=== PATIENT | female | born 1990 | race Two or more races ===

== ENCOUNTER → 2017-01-28 | Outpatient (CLI) | payer MEDICAID ==
[~2017-01-28] MED LIST: GLUCOPHAGE1000 MG PO; GLUCOTROL10 MG PO; HUMALOG MI100 UNIT/5 SUB-Q; LEVEMIR100 UNIT/1 SUB-Q; PERCOCET 5-3251 EACH PO; PRENATAL 1+1)(P1 TAB PO
== END | disposition disaster alternative care site (69) ==
LOC: GCAR 14:33
DX: O24.112 Pre-existing type 2 diabetes mellitus, in pregnancy, second trimester (principal)

== ENCOUNTER 2017-04-29 11:02 | Inpatient (IN) | payer MEDICAID ==
[~2017-04-29] VITALS: Ht 160 cm; Wt 146.4 kg
--- NOTE | ~2017-04-29 | DS ---
PATIENT'S NAME: NAG KATHLEEN [facility] AGE: 27 Y [address] ROOM: [place] [id number] LOCATION: BS ADMIT DATE: 04/29/2017 Discharge Summary DISCHARGE DATE: 05/02/2017 FAMILY PHYSICIAN: Yadiel Carrasquillo MD ATTENDING PHYSICIAN: Edinson Holland DISCHARGE DIAGNOSES: 1. Intrauterine . 2. Thirty-two week . 3. Type 2 diabetes. 4. Obesity. 5. Severe preeclampsia. REASON FOR ADMISSION: IUFD. PROCEDURES DURING ADMISSION: Primary low transverse section. HOSPITAL COURSE: The patient is a 27-year-old G1, who presented to the office on 04/29/2017 complaining of decreased movement. She was diagnosed with an IUFD. She desired surgical management. She thus was admitted and underwent a primary low transverse section without complications. Prevena was placed over her incision. She did have severe range pressures necessitating treatment, therefore was diagnosed with preeclampsia with severe features and was started on magnesium. She remained on this for 24 hours postoperatively. Postoperatively, she was doing well. She was ambulating, urinating, tolerating p.o., and desired discharge home on postoperative day #3. She was continued on her metformin from home and was on Levemir 20 units with a sliding scale insulin as well. DISCHARGE MEDICATIONS: See med rec. FOLLOWUP: The patient will follow up with me in [address] Carrasquillo in 6 weeks. MD ZANE GARDNER/kenial /[id number] d: t: 05/06/17 0334, DISCHARGE SUMMARY
--- NOTE | ~2017-04-29 | OR ---
PATIENT'S NAME: ANG KATHLEEN [facility] AGE: 27 Y [address] ROOM: [place] [address] LOCATION: [facility] ADMIT DATE: 04/29/2017 OR/Procedure Report DISCHARGE DATE: FAMILY PHYSICIAN: Yadiel Carrasquillo MD ATTENDING PHYSICIAN: EDINSON HOLLAND SURGEON: Edinson Holland MD WHITE SIDEWALL TIRE BUFFER: Dr. Carrasquillo, his assistance was required for delivery of the fetus as well as adequate exposure during the case. DATE OF PROCEDURE: 04/29/2017 PREOPERATIVE DIAGNOSES: 1. Intrauterine at 32 weeks. 2. Intrauterine demise. 3. Diabetes mellitus type 2. 4. Morbid obesity. POSTOPERATIVE DIAGNOSES: 1. Intrauterine at 32 weeks. 2. Intrauterine demise. 3. Diabetes mellitus type 2. 4. Morbid obesity. PROCEDURE PERFORMED: Primary low transverse section. ANESTHESIA: Spinal. FINDINGS: Male infant with weight of 5 pounds 5 ounces. Normal uterus, fallopian tubes, and ovaries bilaterally. Normal placenta, 3 vessel cord. ESTIMATED BLOOD LOSS: 800 mL. COMPLICATIONS: None. INDICATIONS: The patient is a 27-year-old G1, with intrauterine at 32 weeks, who presented to the office today complaining of no movement for the past week. heart tones were attempted to be obtained and could not be by the nurses in our clinic, therefore an ultrasound was performed and no cardiac activity was noted, this was confirmed by Dr. Linares. The patient was checked and found to be close, thick, and high. She was counseled about vaginal delivery versus section. The patient desired to undergo primary section. She was counselled about the risks of the procedure including bleeding, infection, damage to surrounding organs or tissue including bowel, bladder, blood vessels, ureters, and nerves. She was counseled on the risk of needing additional procedures or hospitalizations due PATIENT'S NAME: ANG KATHLEEN [facility] AGE: 27 Y [address] ROOM: [place] [address] LOCATION: [facility] ADMIT DATE: 04/29/2017 OR/Procedure Report DISCHARGE DATE: FAMILY PHYSICIAN: Yadiel Carrasquillo MD ATTENDING PHYSICIAN: JAN,EDINSON to any complications. DESCRIPTION OF PROCEDURE: The patient was taken to operating room. Spinal anesthesia was placed. She was then placed in dorsal supine position. Catheter was placed. She was then prepped and draped in usual sterile fashion. A scalpel was used to make a Pfannenstiel incision and carried down to the underlying fascia. The fascia was scored. The fascial incision was extended bilaterally with Nieto scissors. Fascia was then dissected off the rectus muscles inferiorly and superiorly, sharply and bluntly. The rectus muscles were then divided in midline, and peritoneum was identified and entered sharply. The peritoneal incision was extended bluntly. A bladder blade was placed for visualization. Scalpel was then used to make a transverse incision in lower uterine segment, this extended in cephalad caudal direction. The head was then grasped and delivered through the incision, followed by the remainder of the fetus. Cord was clamped and cut, and the was taken off the surgical field. The placenta was then expressed intact. The uterus was exteriorized and cleared of any remaining clots and debris. Hysterotomy was closed in running locked fashion with 0 chromic suture, [id number] as well as Vicryl placed in midline. Hemostasis was noted. The uterus was just placed in the abdominal cavity. The rectus muscles and fascia were inspected and noted to be hemostatic. The fascia was then closed in running fashion using 0 PDS suture. Subcutaneous tissue was then irrigated, and any areas of bleeding were cauterized that was then closed in running fashion with 2-0 Vicryl. Skin was then closed with 4-0 Monocryl in subcuticular fashion. A Prevena dressing was placed. Instrument, sponge, and needle counts were correct prior to abdominal closure and at the conclusion of the case. MD ZANE GARDNER/wilman /[id number] d: 04/30/17 0147 t: 05/05/17 1822, OPERATIVE SUMMARY
[2017-04-29] MEDS ORDERED: PRENATAL 1+1)(P1 TAB PO (11:36)
[2017-04-29] MEDS ORDERED: HUMALOG MI100 UNIT/5 SUB-Q ×2 (12:19→12:23)
[2017-04-29] MEDS ORDERED: LEVEMIR100 UNIT/1 SUB-Q (12:20)
[2017-04-29] MEDS ORDERED: GLUCOPHAGE1000 MG PO (12:21)
[2017-04-29 12:37] LABS: BASOPHIL % 0.2 %; EOSINOPHIL # 0.1 K/uL (0.0-0.5); EOSINOPHIL % 0.5 %; HEMATOCRIT 34.9 % (33.0-46.0); HEMOGLOBIN 11.7 g/dL (11.0-15.0); IMMATURE GRANULOCYTE # 0.1 K/uL (0.0-0.3); IMMATURE GRANULOCYTE % 0.7 %; LYMPHOCYTE # 2.8 K/uL (0.8-4.0); LYMPHOCYTE % 24.8 %; MCH 29.6 pg (27.0-34.0); MCHC 33.5 gm/dL (32.0-36.5); MCV 88.4 fl (83.0-98.0); MONOCYTE # 0.8 K/uL (0.0-1.0); MONOCYTE % 6.9 %; MPV 10.9 fl (9.4-12.4); NEUTROPHIL # (ANC) 7.4 K/uL (1.8-7.8); NEUTROPHIL % 66.9 %; NRBC % 0 /100WBC (0-0.00); PLATELET COUNT 244 K/uL (150-450); RBC 3.95 M/uL (3.50-5.00); RDW-CV 13.7 % (11.9-14.6); WBC 11.1 K/uL (4.0-11.0)
[2017-04-29 13:04] LABS: ALBUMIN 2.5 gm/dL (3.5-5.0); ALK PHOS 65 IU/L (33-138); ALT 14 IU/L (12-78); ANION GAP 14.8 (10.0-19.0); AST 16 IU/L (10-40); BLOOD UREA NITROGEN 13 mg/dL (6-24); CALCIUM 9.3 mg/dL (8.5-10.5); CHLORIDE 109 mMol/L (96-110); CO2 19 mMol/L (22-32); CREATININE 0.6 mg/dL (0.5-1.1); POTASSIUM 3.8 mMol/L (3.7-5.1); SODIUM 139 mMol/L (135-145); TOTAL BILIRUBIN 0.2 mg/dL (0.0-1.5); TOTAL PROTEIN 7.2 g/dL (6.0-8.4)
[2017-04-29] MEDS ORDERED: GLUCOTROL10 MG PO (13:20)
--- NOTE | 2017-04-29 17:09 | NUR ---
CM was on the floor when patient arrived with an intrauterine demise. Michaela with [facility] was talking to patient's mom in the hallway and asked me to call pastoral care for the family which I did. Family has also called their [employer] mill operator/father but he will not be here until 1500. Met with patient's mom and friend who is like a mother to patient and offered condolences and support. Spoke to patient's brother who is also very worried about patient. Offered support and condolences to patient and spouse. Their [employer] operator arrived shortly after 1500 and will stay until after csection is complete. Family friend and father will be in the OR with patient. This was okayed with all medical staff. No other needs at this time.
[2017-04-30 06:07] LABS: BASOPHIL % 0.2 %; EOSINOPHIL % 0.3 %; HEMATOCRIT 31.1 % (33.0-46.0); HEMOGLOBIN 10.1 g/dL (11.0-15.0); IMMATURE GRANULOCYTE % 0.3 %; LYMPHOCYTE # 2.2 K/uL (0.8-4.0); LYMPHOCYTE % 19.8 %; MCH 29.2 pg (27.0-34.0); MCHC 32.5 gm/dL (32.0-36.5); MCV 89.9 fl (83.0-98.0); MONOCYTE # 0.6 K/uL (0.0-1.0); MONOCYTE % 5.3 %; MPV 10.4 fl (9.4-12.4); NEUTROPHIL # (ANC) 8.1 K/uL (1.8-7.8); NEUTROPHIL % 74.1 %; NRBC % 0 /100WBC (0-0.00); PLATELET COUNT 196 K/uL (150-450); RBC 3.46 M/uL (3.50-5.00); RDW-CV 13.9 % (11.9-14.6)
--- NOTE | 2017-05-01 05:21 | NUR ---
BP WNL. RR 28-40 THROUGHOUT NIGHT. 02 SAT WNL. FUNDUS FIRM, EVEN, SMALL FLOW. WOUND VAC TO INCISION. NOVOLOG INSULIN NOT NEEDED AT BEDTIME. ACCUCHECK AT 0400 WAS 90. VOIDING WITHOUT DIFFICULTY. SHOWERED LAST EVENING.
--- NOTE | 2017-05-02 05:28 | NUR ---
VSS. BPS 130S/70S-80S. ACCUCHECK AT 0300 WAS 85. WOUND VAC TO INCISION. LAST HAD 2 PERCOCET AT 0320. FUNDUS FIRM, EVEN, SMALL FLOW. HOME TODAY. WOULD LIKE TO DONATE BABY ITEMS TO HOSPITAL, CARE MANAGEMENT CONSULT ORDERED FOR THIS MONRING.
[2017-05-02] MEDS ORDERED: PERCOCET 5-3251 EACH PO (13:04)
== END 2017-05-02 14:00 | disposition disaster alternative care site (69) | DRG 765 ==
LOC: GOBS 11:02
PROVIDERS: ADMIT Obstetrics & Gynecology
PROC: 10D00Z1 Extraction of Products of Conception, Low, Open Approach (ICD-10-PCS; principal; 2017-04-29)
DX: O36.4XX0 Maternal care for intrauterine death, not applicable or unspecified (principal); E66.2 Morbid (severe) obesity with alveolar hypoventilation; O24.92 Unspecified diabetes mellitus in childbirth; O99.214 Obesity complicating childbirth; Z3A.32 32 weeks gestation of pregnancy; Z37.1 Single stillbirth; O11.4 Pre-existing hypertension with pre-eclampsia, complicating childbirth
CPT/HCPCS: J0610; J0690; J1650; J2001; J2270; J3010; J3475; J7040; J7120